=== PATIENT | female | born 1985 | race Two or more races ===

== ENCOUNTER 2018-08-17 12:53 | Emergency (ER) | payer SELFPAY ==
[~2018-08-17] VITALS: Ht 167.6 cm; Wt 56.2 kg
[2018-08-17] MEDS ORDERED: HYDROCODONE/APAP 5/325MG 1 EACH TABLET ONE (13:23)
[2018-08-17] MEDS ORDERED: HYDROCODONE/APAP 5/325MG 1 EACH TABLET PO ONE (13:30)
[2018-08-17 14:19] VITALS: BP 103/64
== END 2018-08-17 14:20 | disposition home or self-care (01) ==
LOC: ER 12:53
DX: R51 Headache (principal)
CPT/HCPCS: 70450-TC